=== PATIENT | female | born 1950 | race Caucasian/White ===

== ENCOUNTER 2024-06-01 10:40 | Outpatient (AMB) | payer MEDICARE, SELFPAY ==
--- NOTE | 2024-06-01 10:59 | A.OFFPC_ITS ---
Vital Signs 06/01/24 11:06 06/01/24 11:26 Height 5 ft 5 in Weight 225 lb BMI 37.4 BP 171/73 H 152/74 H Blood Pressure Location Rt brachial Rt brachial Position Sitting Respiration 12 Pulse 66 Pulse Source Pulse Oximeter Pulse Oximetry (%) 96 Oxygen Delivery Method Room Air Intake Visit Reasons: raquel from [facility] Intake Note: Patient is here to transfer care from [facility] [place] to [facility]. Patient reports she has no concerns at this time. 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 Accompanied by: Self / Same As Patient Allergies codeine Allergy (Severe, Verified 06/01/24 11:10) Dizziness colchicine Allergy (Severe, Verified 06/01/24 11:11) Confusion Medication List - Last Reconciled 06/01/24 by Mireya Mazariegos MD amlodipine 5 mg PO BID 90 days apixaban (Eliquis) 5 mg PO BID atorvastatin 40 mg PO DAILY 90 days furosemide 20 mg PO DAILY 90 days levobunolol 0.5% drps ophthalmic (eye) losartan 50 mg PO DAILY 90 days metoprolol succinate ER 50 mg PO DAILY Tobacco use date assessed: 06/01/24 Fall risk assessment: No Falls in past year Last assessed Fall Risk: 06/01/24 Dental Screening Dental Screen Date: 06/01/24 Did you have a dental visit in the last 12 months?: No Did you have a dental problem in the last 6 months where you did not have access to dental care?: No Was dental information given to patient?: Patient has dentist HPI HPI Comments History of Present Illness Details The patient is a 74 year old female with a past medical history of hypertension, hyperlipidemia, history of CVA presenting for follow up CV: On amlodipine, losartan, toprol, lasix, eliquis. Mild elevation in blood pressure. Normotensive at home. Due for labs. Reports mammo UTD. [facility] Social History Household Members: Spouse Housing: House Are you a primary reservoir caretaker to a significant other at home: No Do you presently have visiting nurse or other home services: No 75 years or older and lives alone: No Alcohol intake: never Patient Tobacco Use Status: Never used Tobacco e-Cigarette/Vaping Use: Never Used service: No Current occupational status: retired Cognitive needs: No Hearing needs: No Vision needs: No Questionnaire PHQ-9 Over the last 2 weeks, how often have you been bothered by any of the following problems? 1. Little interest or pleasure in doing things: not at all 2. Feeling down, depressed, or hopeless: not at all 3. Trouble falling or staying asleep, or sleeping too much: not at all 4. Feeling tired or having little energy: not at all 5. Poor appetite or overeating: not at all 6. Feeling bad about yourself - or that you are a failure or have let yourself or your family down: not at all 7. Trouble concentrating on things, such as reading the newspaper or watching television: not at all 8. Moving or speaking so slowly that other people could have noticed. Or the opposite - being so fidgety or restless that you have been moving around a lot more than usual: not at all 9. Thoughts that you would be better off or of hurting yourself in some way: not at all Total score: 0 Depression Screening Interpretation: Negative Depression Screening Done: Yes 35446 - PHQ-9 Billing: Yes Source: Developed by Drs. Eugene Everett, Nila Santa, Nish Clark and colleagues, with an educational lor from [employer]. Thrive Questionnaire I am a: Patient What is your living situation today?: I have a steady place to live Within the past 12 months, did the food you bought not last and you didn't have the money to get more?: Never true Within the past 12 months, did you worry whether your food would run out before you got money to buy more?: Never true Do you have trouble paying for medicines?: No Do you have trouble getting transportation to medical appointments?: No Do you have trouble paying your heating and electricity bill?: No Do you have trouble taking care of your child, family member or friend?: No Do you have trouble with day-to-day activities such as bathing, preparing meals, shopping, managing finances, etc.?: No Are you currently unemployed and looking for a job?: No Are you interested in more education?: No Please select the resources that you would like help with: None Currently or been in a relationship where the following occur: No concerns reported THRIVE Score: 0 AUDIT C Alcohol Use Questionnaire (AUDIT-C) 1. How often do you have a drink containing alcohol?: Never Total Score: 0 WILLIAM-7 AMB Questionnaire WILLIAM-7 Feeling nervous, anxious, or on edge: 0 = Not at all Not being able to stop or control worryin = Not at all Worrying too much about different things: 0 = Not at all Trouble relaxin = Not at all Being so restless that it is hard to sit still: 0 = Not at all Becoming easily annoyed or irritable: 0 = Not at all Feeling afraid as if something awful might happen: 0 = Not at all Total WILLIAM-7 score (0-4 normal; 5-9 mild; 10-14 moderate; 15-21 severe): 0 Source: Developed by Drs. Eugene Everett, Nila Santa, Nish Clark and colleagues, with an educational lor from [employer]. Physical exam (Primary Care) Vital Signs: Last Vital Signs Pulse 66 06/01/24 11:06 Resp 12 06/01/24 11:06 BP 152/74 H 06/01/24 11:26 Pulse Ox 96 06/01/24 11:06 Oxygen Delivery Method Room Air 06/01/24 11:06 BMI result Body Mass Index 37.4 Tobacco/Smoking Status: Tobacco use Status Tobacco use date assessed 06/01/24 06/01/24 11:21 Patient Tobacco Use Status Never used Tobacco 06/01/24 11:21 e-Cigarette/Vaping Use Never Used 06/01/24 11:21 PHQ-9: PHQ-9 Score PHQ-9: Total score 0 06/06/24 10:34 Depression Screening Interpretation: Negative Currently or been in a relationship where the following occur: No concerns reported Assessment and Plan Assessment & Plan (1) History of CVA (cerebrovascular accident): Code(s): Z86.73 - Personal history of transient ischemic attack (TIA), and cerebral infarction without residual deficits Plan: On AC, statin. Blood pressure management. (2) Hypertension: Code(s): I10 - Essential (primary) hypertension Qualifiers: Hypertension type: primary hypertension Qualified Code(s): I10 - Essential (primary) hypertension Plan: Low salt diet. Efforts toward weight loss (3) Hyperlipidemia: Code(s): E78.5 - Hyperlipidemia, unspecified Qualifiers: Hyperlipidemia type: pure hypercholesterolemia Qualified Code(s): E78.00 - Pure hypercholesterolemia, unspecified Orders: Orders Complete Blood Count Auto Diff 06/01/24 E78.5 - Hyperlipidemia, unspecified, I10 - Essential (primary) hypertension, R79.89 - Other specified abnormal findings of blood chemistry, Z86.73 - Personal history of transient ischemic attack (TIA), and cerebral infarction without residual deficits Vitamin B12 and Folate 06/01/24 E78.5 - Hyperlipidemia, unspecified, I10 - Essential (primary) hypertension, R79.89 - Other specified abnormal findings of blood chemistry, Z86.73 - Personal history of transient ischemic attack (TIA), and cerebral infarction without residual deficits Comprehensive Met. Panel 06/01/24 E78.5 - Hyperlipidemia, unspecified, I10 - Essential (primary) hypertension, R79.89 - Other specified abnormal findings of blood chemistry, Z86.73 - Personal history of transient ischemic attack (TIA), and cerebral infarction without residual deficits Lipid Panel 06/01/24 E78.5 - Hyperlipidemia, unspecified, I10 - Essential (primary) hypertension, R79.89 - Other specified abnormal findings of blood chemistry, Z86.73 - Personal history of transient ischemic attack (TIA), and cerebral infarction without residual deficits Medications: New atorvastatin 40 mg PO DAILY 90 tabs 3RF 90 days losartan 50 mg PO DAILY 90 tabs 3RF 90 days metoprolol succinate ER 50 mg PO DAILY 90 tabs 3RF amlodipine 5 mg PO BID 180 tabs 3RF 90 days furosemide 20 mg PO DAILY 90 tabs 3RF 90 days Refilled apixaban (Eliquis) 5 mg PO BID 180 tabs 3RF Coding Level of Care Code Est Pt Level 4 (89754) Complex EM visit Add On G2211 Diagnoses History of CVA (cerebrovascular accident) Z86.73 Primary hypertension I10 Hypertension type: primary hypertension Pure hypercholesterolemia E78.00 Hyperlipidemia type: pure hypercholesterolemia
[2024-06-01 11:06] VITALS: BP 171/73; PULSE 66; RESP 12; O2SAT 96; BMI 37.4
[2024-06-01 11:26] VITALS: BP 152/74
== END 2024-06-01 11:42 | disposition home or self-care (01) ==
PROVIDERS: Visit Provider Internal Medicine
DX: Z86.73 Personal history of transient ischemic attack (TIA), and cerebral infarction without residual deficits (principal); I10 Essential (primary) hypertension; E78.00 Pure hypercholesterolemia, unspecified
CPT/HCPCS: 99214; G2211

== ENCOUNTER 2024-10-05 11:31 | Outpatient (AMB) | payer MEDICARE, SELFPAY ==
--- NOTE | 2024-10-05 11:38 | AM.OFFWIN_ITS ---
Intake Vital Signs 3 10/05/24 11:41 Height 5 ft 5 in Weight 214 lb 8 oz BMI 35.7 BP 146/76 H Blood Pressure Location Rt brachial Position Sitting Respiration 14 Pulse 76 Pulse Source Pulse Oximeter Pulse Oximetry (%) 98 Oxygen Delivery Method Room Air Intake Visit Reasons: est/ gout on right foot Intake Note: Patient complaining of right foot gout Patient Tobacco Use Status: Never used Tobacco Allergies codeine Allergy (Severe, Verified 10/05/24 12:04) Dizziness colchicine Allergy (Severe, Verified 10/05/24 12:04) Confusion Medication List - Last Reconciled 10/05/24 by Mandie Muhammad, CHIEF SUSTAINABILITY OFFICER- amlodipine 5 mg PO BID 90 days apixaban (Eliquis) 5 mg PO BID atorvastatin 40 mg PO DAILY 90 days furosemide 20 mg PO DAILY 90 days levobunolol 0.5% drps ophthalmic (eye) losartan 50 mg PO DAILY 90 days metoprolol succinate ER 50 mg PO DAILY Do you need a note to return to daycare/school/sports/work: No HPI HPI Comments 2 History of Present Illness0 Details History of Present Illness The patient is a 74-year-old female presenting with an acute gout flare primarily affecting her right foot. The episode began on Friday night. She has a known allergy to colchicine, which complicates standard treatment options. This latest occurrence of gout follows a pattern of flares occurring after medical events, notably viral infections. The patient experienced similar flares following a bout of neurovirus, a cold, and cellulitis in her right leg. She reported trying several interventions including Tylenol, foot elevation, and ice application, without relief. Previous episodes have sometimes been manageable without medication, using conservative measures. The patient has previously been prescribed methylprednisolone and responded well to it. Additionally, the patient indicated attempts to adhere to a low-purine diet and mentions a family history of gout affecting male relatives. There was some discussion about the possibility of having medication on hand for potential future episodes, considering her pattern of flares. The patient takes furosemide regularly, and there is a history of swollen lower extremities. Exam: right lower ext neurovasc intact, chronic lower ext edema, + PP, skin warm, not hot. No streaking. Skin intact. See picture below of first metatarsophalangeal joint Plan - Prescribe methylprednisolone for acute gout flare management, with instructions to take with food to prevent gastric upset. - Monitor for symptom improvement within 48 hours post-initiation of treatment. - If symptoms worsen, or if the patient develops fever, or erythema tracking up the leg, advise immediate return for further evaluation. - Discussed potential for obtaining a re fill to have medication on hand for future flares, pending the agreement of the primary care physician. Unfortunatley, she was not available at the time of the visit. Pt to fu with her in November as scheduled. Can discuss then. - Reinforce continuation of a low-purine diet as patient has been attempting. - Encourage adequate hydration, particul giovani post-viral illness, to reduce risk of gout flares. - Advised follow-up with primary physici an for routine care and management discussion. Patient was informed and verbally consented to the use of an ambient scribe for clinic note documentation during this visit. [facility] Social History Household Members: Spouse Housing: House Are you a primary healthcare administration intern to a significant other at home: No Do you presently have visiting nurse or other home services: No 75 years or older and lives alone: No Alcohol intake: never Patient Tobacco Use Status: Never used Tobacco e-Cigarette/Vaping Use: Never Used service: No Current occupational status: retired Cognitive needs: No Hearing needs: No Vision needs: No Physical Exam Vital Signs: Last Vital Signs Pulse 76 10/05/24 11:41 Resp 14 10/05/24 11:41 BP 146/76 H 10/05/24 11:41 Pulse Ox 98 10/05/24 11:41 Oxygen Delivery Method Room Air 10/05/24 11:41 BMI result Body Mass Index 35.7 Assessment & Plan Assessment & Plan (1) Gout flare: Code(s): M10.9 - Gout, unspecified Qualifiers: Gout site: toe Encounter type: initial encounter Laterality: right Plan . Medications: New 2 methylprednisolone (Medrol (Jaime)) PO PER PKG DIR 21 ea 0RF Coding Level of Care Code Est Pt Level 3 (10624) Diagnoses Gout flare M10.9 Gout site: toe Encounter type: initial encounter Laterality: right
[2024-10-05 11:41] VITALS: BP 146/76; PULSE 76; RESP 14; O2SAT 98; BMI 35.7
== END 2024-10-05 12:17 | disposition home or self-care (01) ==
LOC: HO.HMCWIW 11:31
PROVIDERS: PCP Internal Medicine; Visit Provider Nurse Practitioner Family
DX: M10.9 Gout, unspecified (principal)

== ENCOUNTER → 2024-10-05 11:31 | Outpatient (BNVA) | payer MEDICARE, SELFPAY | PROVIDERS: PCP Internal Medicine; Visit Provider Nurse Practitioner Family | DX: M10.9 Gout, unspecified (principal) | CPT/HCPCS: 99212 ==

== ENCOUNTER 2024-12-14 15:57 | Outpatient (AMB) | payer MEDICARE, SELFPAY ==
--- NOTE | 2024-12-14 16:00 | MHC.PC.OV ---
Vital Signs 12/14/24 16:02 Height 5 ft 5 in Weight 211 lb 8 oz BMI 35.2 BP 104/60 Blood Pressure Location Lt brachial Position Sitting Respiration 14 Pulse 68 Pulse Source Pulse Oximeter Pulse Oximetry (%) 95 Oxygen Delivery Method Room Air Intake Visit Reasons: Annual Wellness exam Intake Note: Medical wellness visit. Had stomach virus a couple days ago. Fiberglass Roving Winder Required: No Allergies codeine Allergy (Severe, Verified 12/14/24 16:01) Dizziness colchicine Allergy (Severe, Verified 12/14/24 16:01) Confusion Tobacco use date assessed: 12/14/24 Fall risk assessment: No Falls in past year Dental Screening Dental Screen Date: 06/01/24 HPI HPI Comments History of Present Illness Details The patient is a 74 year old female with a past medical history of hypertension, hyperlipidemia, history of CVA on ASA, DVT, UGIB presenting for AWV CV: On amlodipine, losartan, toprol, lasix, eliquis. Recent diarrhea illness. BP still running slightly lower than normal. She will decrease amlodipine back to 5mg daily. 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 On chronic AC History of CVA-acute ischemic right MCA. Follows with Dr Mendez. GI: EGD 2020. History of bleeding duodenal polyp. Follows [facility]. Due for colonoscopy Follows with dermatology- Dr Cutler Follows with ophtho-Dr Maged Proctor for labs. Mammo ordered Colonoscopy 2014 HRA reviewed-to scanning Care team reviewed Neg fall risk Denies depression ROS CONSTITUTIONAL: Denies weight loss, fever and chills. HEENT: Denies changes in vision and hearing. RESPIRATORY: Denies SOB and cough. CV: Denies palpitations and CP GI: Denies abdominal pain, nausea, vomiting and diarrhea. : Denies dysuria and urinary frequency. MSK: Denies new myalgia and joint pain. SKIN: Denies rash and pruritus. NEUROLOGICAL: Denies headache PSYCHIATRIC: Denies recent changes in mood. PHYSICAL EXAM: GENERAL: Alert and oriented x 3. NAD EYES: EOMI. Anicteric. HENT: Moist mucous membranes. No scleral icterus. No cervical lymphadenopathy. LUNGS: Clear to auscultation bilaterally. CARDIOVASCULAR: Regular rate and rhythm. No murmur. No JVD. ABDOMEN: Soft, non-tender +bs EXTREMITIES: No edema. Non-tender. SKIN: No rashes or lesions. Warm. NEUROLOGIC: No focal neurological deficits. CN II-XII grossly intact PSYCHIATRIC: Cooperative. Appropriate mood and affect [facility] Social History Household Members: Spouse Housing: House Are you a primary medicare coordinator to a significant other at home: No Do you presently have visiting nurse or other home services: No Alcohol intake: never Patient Tobacco Use Status: Never used Tobacco e-Cigarette/Vaping Use: Never Used service: No Current occupational status: retired Cognitive needs: No Hearing needs: No Vision needs: No Questionnaire Thrive Questionnaire Date Thrive assessed: 12/14/24 I am a: Patient What is your living situation today?: I have a steady place to live Within the past 12 months, did the food you bought not last and you didn't have the money to get more?: Never true Within the past 12 months, did you worry whether your food would run out before you got money to buy more?: Never true Do you have trouble paying for medicines?: No Do you have trouble getting transportation to medical appointments?: No Do you have trouble paying your heating and electricity bill?: No Do you have trouble taking care of your child, family member or friend?: No Do you have trouble with day-to-day activities such as bathing, preparing meals, shopping, managing finances, etc.?: No Are you currently unemployed and looking for a job?: No Are you interested in more education?: No Please select the resources that you would like help with: None Currently or been in a relationship where the following occur: No concerns reported THRIVE Score: 0 AUDIT C Alcohol Use Questionnaire (AUDIT-C) 2. How many drinks containing alcohol do you have on a typical day when you are drinking?: 1 or 2 3. How often do you have six or more drinks on one occasion?: Never Total Score: 0 Physical exam (Primary Care) Vital Signs: Last Vital Signs Pulse 68 12/14/24 16:02 Resp 14 12/14/24 16:02 BP 104/60 12/14/24 16:02 Pulse Ox 95 12/14/24 16:02 Oxygen Delivery Method Room Air 12/14/24 16:02 BMI result Body Mass Index 35.2 Tobacco/Smoking Status: Tobacco use Status Tobacco use date assessed 12/14/24 12/14/24 16:07 Patient Tobacco Use Status Never used Tobacco 12/14/24 16:07 e-Cigarette/Vaping Use Never Used 12/14/24 16:07 Thrive Assessment: Date of Thrive Assessment Date Thrive assessed 12/14/24 12/14/24 16:07 Currently or been in a relationship where the following occur: No concerns reported Coding Level of Care Code Est Pt Level 4 (72551) Diagnoses Encounter for annual wellness visit (AWV) in Medicare patient Z00.00 Primary hypertension I10 Hypertension type: primary hypertension Pure hypercholesterolemia E78.00 Hyperlipidemia type: pure hypercholesterolemia Assessment & Plan Assessment & Plan (1) Encounter for annual wellness visit (AWV) in Medicare patient: Code(s): Z00.00 - Encounter for general adult medical examination without abnormal findings Category: Medical (2) Hypertension: Code(s): I10 - Essential (primary) hypertension Category: Medical Qualifiers: Hypertension type: primary hypertension Qualified Code(s): I10 - Essential (primary) hypertension (3) Hyperlipidemia: Code(s): E78.5 - Hyperlipidemia, unspecified Category: Medical Qualifiers: Hyperlipidemia type: pure hypercholesterolemia Qualified Code(s): E78.00 - Pure hypercholesterolemia, unspecified Plan AWV-HRA reviewed Care team HPI Labs ordered Decrease norvasc Mammo ordered. referral to gastroenterology Orders: Orders Comprehensive Met. Panel 12/14/24 E78.00 - Pure hypercholesterolemia, unspecified, I10 - Essential (primary) hypertension, R79.89 - Other specified abnormal findings of blood chemistry Vitamin B12 and Folate 12/14/24 E78.00 - Pure hypercholesterolemia, unspecified, I10 - Essential (primary) hypertension, R79.89 - Other specified abnormal findings of blood chemistry Complete Blood Count Auto Diff 12/14/24 E78.00 - Pure hypercholesterolemia, unspecified, I10 - Essential (primary) hypertension, R79.89 - Other specified abnormal findings of blood chemistry Lipid Panel 12/14/24 E78.00 - Pure hypercholesterolemia, unspecified, I10 - Essential (primary) hypertension, R79.89 - Other specified abnormal findings of blood chemistry MM screening mammo BI 12/14/24 Z12.31 - Encounter for screening mammogram for malignant neoplasm of breast Referrals Gastroenterology Referral Z12.11 - Encounter for screening for malignant neoplasm of colon Medications: New methylprednisolone (Medrol (Jaime)) PO PER PKG DIR for 6 days 21 ea 3RF
[2024-12-14 16:02] VITALS: BP 104/60; PULSE 68; RESP 14; O2SAT 95; BMI 35.2
== END 2024-12-14 16:33 | disposition home or self-care (01) ==
LOC: HO.HMCFM 15:58
PROVIDERS: Visit Provider Internal Medicine
DX: Z00.00 Encounter for general adult medical examination without abnormal findings (principal); I10 Essential (primary) hypertension; E78.00 Pure hypercholesterolemia, unspecified

== ENCOUNTER → 2024-12-14 15:57 | Outpatient (BNVA) | payer MEDICARE, SELFPAY | PROVIDERS: Visit Provider Internal Medicine | DX: Z00.00 Encounter for general adult medical examination without abnormal findings (principal); I10 Essential (primary) hypertension; E78.00 Pure hypercholesterolemia, unspecified; R79.89 Other specified abnormal findings of blood chemistry; Z86.73 Personal history of transient ischemic attack (TIA), and cerebral infarction without residual deficits | CPT/HCPCS: 99212 ==

== ENCOUNTER 2025-06-21 13:46 | Outpatient (AMB) | payer MEDICARE, SELFPAY ==
--- NOTE | 2025-06-21 13:54 | MHC.PC.OV ---
Vital Signs 06/21/25 13:56 Height 5 ft 5 in Weight 217 lb 8 oz BMI 36.2 BP 136/72 Blood Pressure Location Rt brachial Position Sitting Respiration 14 Pulse 60 Pulse Source Pulse Oximeter Pulse Oximetry (%) 98 Oxygen Delivery Method Room Air Intake Visit Reasons: bp check Intake Note: Blood pressure follow up. refill on Atorvastatin Autopsy Pathologist Required: No Allergies codeine Allergy (Severe, Verified 06/21/25 13:54) Dizziness colchicine Allergy (Severe, Verified 06/21/25 13:54) Confusion Tobacco use date assessed: 06/21/25 Fall risk assessment: No Falls in past year Last assessed Fall Risk: 06/21/25 Dental Screening Dental Screen Date: 06/21/25 Did you have a dental visit in the last 12 months?: Yes Did you have a dental problem in the last 6 months where you did not have access to dental care?: No Was dental information given to patient?: Patient has dentist HPI HPI Comments History of Present Illness Details The patient is a 74 year old female with a past medical history of hypertension, hyperlipidemia, history of CVA on ASA, DVT, UGIB presenting for follow up CV: On amlodipine 5mg daily (decreased from 10), losartan 50, toprol 50, lasix 20mg daily, eliquis. Recent diarrhea illness. 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 On chronic AC. Last Cr slightly bump. She denies fluid retention History of CVA-acute ischemic right MCA. Follows with Dr Mendez. GI: EGD 2020. History of bleeding duodenal polyp. Follows [facility]. Due for colonoscopy Follows with dermatology- Dr Cutler Follows with ophtho-Dr Lynne Last B12 was in the lower end of normal Mammo ordered Colonoscopy 2014-she will call to schedule [facility] ROS CONSTITUTIONAL: Denies weight loss, fever and chills. HEENT: Denies changes in vision and hearing. RESPIRATORY: Denies SOB and cough. CV: Denies palpitations and CP GI: Denies abdominal pain, nausea, vomiting and diarrhea. : Denies dysuria and urinary frequency. MSK: Denies new myalgia and joint pain. SKIN: Denies rash and pruritus. NEUROLOGICAL: Denies headache PSYCHIATRIC: Denies recent changes in mood. PHYSICAL EXAM: GENERAL: Alert and oriented x 3. NAD EYES: EOMI. Anicteric. HENT: Moist mucous membranes. No scleral icterus. No cervical lymphadenopathy. LUNGS: Clear to auscultation bilaterally. CARDIOVASCULAR: Regular rate and rhythm. No murmur. No JVD. ABDOMEN: Soft, non-tender +bs EXTREMITIES: No edema. Non-tender. SKIN: No rashes or lesions. Warm. NEUROLOGIC: No focal neurological deficits. CN II-XII grossly intact PSYCHIATRIC: Cooperative. Appropriate mood and affect [facility] Social History Household Members: Spouse Housing: House Are you a primary pediatric acute care unit nurse to a significant other at home: No Do you presently have visiting nurse or other home services: No 75 years or older and lives alone: No Alcohol intake: never Patient Tobacco Use Status: Never used Tobacco e-Cigarette/Vaping Use: Never Used service: No Current occupational status: retired Cognitive needs: No Hearing needs: No Vision needs: No Questionnaire PHQ-9 Over the last 2 weeks, how often have you been bothered by any of the following problems? 1. Little interest or pleasure in doing things: not at all 2. Feeling down, depressed, or hopeless: not at all 3. Trouble falling or staying asleep, or sleeping too much: not at all 4. Feeling tired or having little energy: not at all 5. Poor appetite or overeating: not at all 6. Feeling bad about yourself - or that you are a failure or have let yourself or your family down: not at all 7. Trouble concentrating on things, such as reading the newspaper or watching television: not at all 8. Moving or speaking so slowly that other people could have noticed. Or the opposite - being so fidgety or restless that you have been moving around a lot more than usual: not at all 9. Thoughts that you would be better off or of hurting yourself in some way: not at all Total score: 0 Depression Screening Interpretation: Negative Depression Screening Done: Yes 19644 - PHQ-9 Billing: Yes Source: Developed by Drs. Eugene Everett, Nila Santa, Nish Clark and colleagues, with an educational lor from [employer]. Thrive Questionnaire Date Thrive assessed: 12/14/24 I am a: Patient What is your living situation today?: I have a steady place to live Within the past 12 months, did the food you bought not last and you didn't have the money to get more?: Never true Within the past 12 months, did you worry whether your food would run out before you got money to buy more?: Never true Do you have trouble paying for medicines?: No Do you have trouble getting transportation to medical appointments?: No Do you have trouble paying your heating and electricity bill?: No Do you have trouble taking care of your child, family member or friend?: No Do you have trouble with day-to-day activities such as bathing, preparing meals, shopping, managing finances, etc.?: No Are you currently unemployed and looking for a job?: No Are you interested in more education?: No Please select the resources that you would like help with: None Currently or been in a relationship where the following occur: No concerns reported THRIVE Score: 0 AUDIT C Alcohol Use Questionnaire (AUDIT-C) 1. How often do you have a drink containing alcohol?: Monthly or less Total Score: 1 WILLIAM-7 AMB Questionnaire WILLIAM-7 Feeling nervous, anxious, or on edge: 0 = Not at all Not being able to stop or control worryin = Not at all Worrying too much about different things: 0 = Not at all Trouble relaxin = Not at all Being so restless that it is hard to sit still: 0 = Not at all Becoming easily annoyed or irritable: 0 = Not at all Feeling afraid as if something awful might happen: 0 = Not at all Total WILLIAM-7 score (0-4 normal; 5-9 mild; 10-14 moderate; 15-21 severe): 0 Source: Developed by Drs. Eugene Everett, Nila Santa, Nish Clark and colleagues, with an educational lor from [employer]. Physical exam (Primary Care) Vital Signs: Last Vital Signs Pulse 60 06/21/25 13:56 Resp 14 06/21/25 13:56 BP 136/72 06/21/25 13:56 Pulse Ox 98 06/21/25 13:56 Oxygen Delivery Method Room Air 06/21/25 13:56 BMI result Body Mass Index 36.2 Tobacco/Smoking Status: Tobacco use Status Tobacco use date assessed 06/21/25 06/21/25 13:58 Patient Tobacco Use Status Never used Tobacco 06/21/25 13:58 e-Cigarette/Vaping Use Never Used 06/21/25 13:58 PHQ-9: PHQ-9 Score PHQ-9: Total score 0 06/22/25 08:55 Depression Screening Interpretation: Negative Thrive Assessment: Date of Thrive Assessment Date Thrive assessed 12/14/24 06/21/25 13:58 Currently or been in a relationship where the following occur: No concerns reported Coding Level of Care Code Est Pt Level 4 (97083) Complex EM visit Add On G2211 Diagnoses Primary hypertension I10 Hypertension type: primary hypertension Pure hypercholesterolemia E78.00 Hyperlipidemia type: pure hypercholesterolemia History of CVA (cerebrovascular accident) Z86.73 Additional Codes PHQ-9 - 57019 - PHQ-9 Billing: Yes ([id number]) Assessment & Plan Assessment & Plan (1) Hypertension: Code(s): I10 - Essential (primary) hypertension Category: Medical Qualifiers: Hypertension type: primary hypertension Qualified Code(s): I10 - Essential (primary) hypertension (2) Hyperlipidemia: Code(s): E78.5 - Hyperlipidemia, unspecified Category: Medical Qualifiers: Hyperlipidemia type: pure hypercholesterolemia Qualified Code(s): E78.00 - Pure hypercholesterolemia, unspecified (3) History of CVA (cerebrovascular accident): Code(s): Z86.73 - Personal history of transient ischemic attack (TIA), and cerebral infarction without residual deficits Category: Medical Plan 75 year old female for follow up HTN-adequately controlled. Mild bump Cr-decrease lasix to 10mg daily Continue amlodipine 5mg once daily Labs ordered. Offered gi referral-she declines says she will call [facility] Orders: Orders Lipid Panel 6 Months E78.00 - Pure hypercholesterolemia, unspecified, I10 - Essential (primary) hypertension, Z13.0 - Encounter for screening for diseases of the blood and blood-forming organs and certain disorders involving the immune mechanism Hemoglobin A1c 6 Months E78.00 - Pure hypercholesterolemia, unspecified, I10 - Essential (primary) hypertension, Z13.0 - Encounter for screening for diseases of the blood and blood-forming organs and certain disorders involving the immune mechanism TSH reflex Free T4 6 Months E78.00 - Pure hypercholesterolemia, unspecified, I10 - Essential (primary) hypertension, Z13.0 - Encounter for screening for diseases of the blood and blood-forming organs and certain disorders involving the immune mechanism Complete Blood Count Auto Diff 6 Months E78.00 - Pure hypercholesterolemia, unspecified, I10 - Essential (primary) hypertension, Z13.0 - Encounter for screening for diseases of the blood and blood-forming organs and certain disorders involving the immune mechanism Comprehensive Met. Panel 6 Months E78.00 - Pure hypercholesterolemia, unspecified, I10 - Essential (primary) hypertension, Z13.0 - Encounter for screening for diseases of the blood and blood-forming organs and certain disorders involving the immune mechanism Medications: Refilled atorvastatin 40 mg PO DAILY 90 tabs 3RF 90 days
[2025-06-21 13:56] VITALS: BP 136/72; PULSE 60; RESP 14; O2SAT 98; BMI 36.2
--- OUTSIDE RECORDS SUMMARY | 2025-06-21 15:05 | XMS_ITS | Clinical Summary ---
Author Organization [facility] [address] [facility] Address [address] [place] [address] Phone Care Team Providers Care Manufacturing Engineer Name Role Phone Mireya Mazariegos MD Primary Care Provider [phone] Social History Tobacco Use Types Packs/Day Years Used Date Smoking Tobacco: Never Assessed Comments Unknown Sex and Gender Information Value Date Recorded Sex Assigned at Not on file Legal Sex Female 10:42 AM EDT Gender Identity Not on file Sexual Orientation Not on file Plan of Treatment Health Maintenance Due Date Last Done Comments DTaP,Tdap,and Td Vaccines (1 - Tdap) 02/14/1968 Pneumococcal Vaccine: 50+ Ye ars (1 of 1 - PCV) 1999 Zoster Vaccines (1 of 2) 1999 RSV Immunization Adult Patie nts (1 - 1-dose 75+ series) 02/14/2024 Depression Screening 09/22/2024 Falls Risk Assessment 12/21/2024 Hepatitis C Screening 12/21/2024 Medicare Annual Wellness Visit 12/21/2024 Osteoporosis Screening (Bone Density Screening) 12/21/2024 Social Influencers of Health Screening 12/21/2024 COVID-19 Vaccine ( - 2023-2 5 season) 2025 Influenza Vaccine (#1) 2025 HIB Vaccines Aged Out No longer eligi ble based on patient's age to complete this topic HPV Vaccines Aged Out No longer eligi ble based on patient's age to complete this topic Hepatitis A Vaccines Aged Out No long er eligible based on patient's age to complete this topic Hepatitis B Vaccines Aged Out No long er eligible based on patient's age to complete this topic IPV Vaccines Aged Out No longer eligi ble based on patient's age to complete this topic MMR Vaccines Aged Out No longer eligi ble based on patient's age to complete this topic Meningococcal ACWY Vaccine Aged Out N o longer eligible based on patient's age to complete this topic Meningococcal B Vaccine Aged Out No l onger eligible based on patient's age to complete this topic RSV Immunization Patients Un nilam 20 months Aged Out No longer eligible b ased on patient's age to complete this topic Varicella Vaccines Aged Out No longer eligible based on patient's age to complete this topic Insurance MEDICARE [facility] Care Teams Manufacturing Engineer Relationship Specialty Start Date End Date Mireya Mazariegos MD [address] [place] [id number] PCP - General Internal Medicine 12/21/24
== END 2025-06-21 14:22 | disposition home or self-care (01) ==
LOC: HO.HMCFM 13:47
PROVIDERS: PCP Internal Medicine; Visit Provider Internal Medicine
DX: I10 Essential (primary) hypertension (principal); E78.00 Pure hypercholesterolemia, unspecified; Z86.73 Personal history of transient ischemic attack (TIA), and cerebral infarction without residual deficits

== ENCOUNTER → 2025-06-21 13:46 | Outpatient (BNVA) | payer MEDICARE, SELFPAY | PROVIDERS: PCP Internal Medicine; Visit Provider Internal Medicine | DX: I10 Essential (primary) hypertension (principal); E78.00 Pure hypercholesterolemia, unspecified; Z86.73 Personal history of transient ischemic attack (TIA), and cerebral infarction without residual deficits; Z79.01 Long term (current) use of anticoagulants; Z79.899 Other long term (current) drug therapy; Z13.31 Encounter for screening for depression | CPT/HCPCS: 96127; 99212 ==